=== PATIENT | female | born 2005 | race Two or more races ===

== ENCOUNTER 2025-03-31 20:25 | Outpatient (CLI) | payer OTHER ==
[~2025-03-31] VITALS: Ht 156.2 cm; Wt 85.1 kg
[~2025-03-31 20:25] MED LIST: ASPI81CH33 PO; PRENTAB9 PO; VITA50TA6 PO
[2025-03-31] MEDS: LACTATED RINGER'S 1000 ML IV STA (20:58)
[2025-03-31 21:41] VITALS: BP 106/70
[2025-03-31 22:14] LABS: PLATELET COUNT, AUTOMATED 234 10^3/uL (150-450)
[2025-03-31 22:17] LABS: APPEARANCE, URINE HAZY (CLEAR); BACTERIA, URINE AUTO 1+ (NEGATIVE); BILIRUBIN, URINE AUTO NEGATIVE (NEGATIVE); BLOOD, URINE BLOOD 1+ (NEGATIVE); GLUCOSE, URINE (UA) AUTO NEGATIVE (NEGATIVE); KETONE, URINE AUTO NEGATIVE (NEGATIVE); LEUKOCYTE ESTERASE, URINE AUTO 3+ (NEGATIVE); MUCUS, URINE SMALL (NEGATIVE); NITRITE, URINE AUTO NEGATIVE (NEGATIVE); PROTEIN, URINE AUTO NEGATIVE (NEGATIVE); RBC, URINE AUTO 2 /HPF (0-3); SPECIFIC GRAVITY URINE AUTO 1.009 (1.002-1.035); SQUAMOUS EPITHELIAL CELL UR AU 1 /HPF (0-6); UROBILINOGEN, URINE AUTO 0.2 mg/dL (0.0-2.0); WBC, URINE AUTO 29 /HPF (0-3)
[2025-03-31] MEDS: ACETAMINOPHEN 500 MG TAB PO ONE (22:37)
[2025-03-31 22:51] LABS: ALT/SGPT 17 U/L (7.0-40); AST/SGOT 28 U/L (<34); CALCIUM LEVEL 8.7 MG/DL (8.5-10.1); CARBON DIOXIDE LEVEL 21 MMOL/L (20-31); CHLORIDE LEVEL 102 MMOL/L (98-107); CREATININE FOR GFR 0.43 MG/DL (0.55-1.30); GLOMERULAR FILTRATION RATE > 90.0 (>60); POTASSIUM SERUM 4.3 MMOL/L (3.5-5.1); SODIUM LEVEL 137 MMOL/L (136-145)
[2025-04-01] MEDS: cefTRIAXone SOD 1 GM in DEXTROSE 5% (D5W) ADV/MINI-BAG 50 ML IV SCH (00:09)
[2025-04-01 00:11] VITALS: BP 105/65
[2025-04-01] MEDS: NS (Normal Saline) 0.9% 1,000 ML IV ONE (00:14)
[2025-04-01] MEDS: LR 1,000 ML IV SCH (00:45)
[2025-04-01] MEDS: ACETAMINOPHEN 500 MG TAB PO ONE (05:54)
[2025-04-01] MEDS ORDERED: MACR100C43 PO (06:11)
== END 2025-04-01 06:11 | disposition home or self-care (01) ==
LOC: M LDO 20:25
PROVIDERS: ATTEND Obstetrics & Gynecology
DX: O23.33 Infections of other parts of urinary tract in pregnancy, third trimester (principal); O26.893 Other specified pregnancy related conditions, third trimester; R06.02 Shortness of breath; Z3A.29 29 weeks gestation of pregnancy
CPT/HCPCS: 36415; 59025; 71045; 76705; 80053; 81001; 82150; 83690; 85027; 87040; 87088; 87186; 93005; G0463; J0696

== ENCOUNTER → 2025-05-20 | Outpatient (REF) | payer OTHER ==
[~2025-05-20] MED LIST changes: +MACR100C43 PO
== END ==
LOC: M SFHCWAGY 12:36
PROVIDERS: ATTEND Nurse Practitioner Family
DX: Z34.93 Encounter for supervision of normal pregnancy, unspecified, third trimester (principal); Z3A.36 36 weeks gestation of pregnancy

== ENCOUNTER 2025-06-11 | Outpatient (CLI) | payer OTHER ==
[~2025-06-11] VITALS: Ht 154.9 cm; Wt 92.0 kg
[2025-06-11 00:18] VITALS: BP 107/60
[2025-06-11] MEDS ORDERED: HOME MED LIST COMPLETE! XX SCH (00:25)
[2025-06-11] MEDS ORDERED: ALBU8.5H (00:27)
== END 2025-06-11 02:00 | disposition home or self-care (01) ==
LOC: M LDO
PROVIDERS: ATTEND Advanced Practice Midwife
DX: O26.893 Other specified pregnancy related conditions, third trimester (principal); R06.02 Shortness of breath; Z3A.39 39 weeks gestation of pregnancy
CPT/HCPCS: 59025; G0463

== ENCOUNTER 2025-06-13 07:08 | Inpatient (IN) | payer OTHER ==
[2025-06-13] VITALS (35 sets, daily range): BP systolic 91–210; BP diastolic 52–154
[~2025-06-13] VITALS: Ht 154.9 cm; Wt 92.5 kg
[~2025-06-13 07:08] MED LIST changes: +ALBU8.5H
[2025-06-13] MEDS ORDERED: CARBOPROST TROMETHAMINE 250 MCG/ML AMP IM PRN (09:05)
[2025-06-13] MEDS ORDERED: LIDOCAINE 1% MDV 20 ML VIAL INFIL PRN (09:05)
[2025-06-13] MEDS ORDERED: OXYTOCIN DRIP 30 UNITS in IV 1 EA IV PRN (09:05)
[2025-06-13] MEDS ORDERED: METHYLERGONOVINE MALEATE 0.2 MG/ML 1 ML VIAL IM PRN (09:05)
[2025-06-13] MEDS ORDERED: OXYTOCIN INJ 10UNITS/ML 1ML VIAL IM PRN (09:05)
[2025-06-13 10:12] LABS: PLATELET COUNT, AUTOMATED 223 10^3/uL (150-450)
[2025-06-13 11:05] LABS: HIV 1&2 SCREEN NEGATIVE (NEGATIVE)
[2025-06-13 11:13] LABS: HEPATITIS C VIRUS ABY INDEX < 0.02 INDEX (<0.8)
[2025-06-13] MEDS: LR 1,000 ML IV SCH (18:32)
[2025-06-13] MEDS: OXYTOCIN DRIP 30 UNITS in IV 1 EA IV SCH (18:32)
[2025-06-13] MEDS: LACTATED RINGER'S 1000 ML IV STA (19:52)
[2025-06-13] MEDS ORDERED: EPIDURAL/PCA KEYS XX PRN (20:25)
[2025-06-13] MEDS ORDERED: NALOXONE INJ 0.4 MG/1 ML VIAL IV PRN (20:25)
[2025-06-13] MEDS ORDERED: LR 500 ML IV PRN (20:25)
[2025-06-13] MEDS: FENTANYL/ROPIVACAINE/NACL BAG 100 ML EPIDURAL SCH (20:53)
[2025-06-14] VITALS (21 sets, daily range): BP systolic 96–160; BP diastolic 50–131; O2SAT 97–99
[2025-06-14] MEDS ORDERED: ACETAMINOPHEN 500 MG TAB As Ordered ONE (02:57)
[2025-06-14] MEDS: ACETAMINOPHEN 500 MG TAB PO ONE (02:59)
[2025-06-14] MEDS: AMPICILLIN SOD/SULBACTAM SOD 3 GM in DEXTROSE 5% (D5W) MINI-BAG PLU 100 ML IV ONE (03:02)
[2025-06-14 03:49] LABS: CORD GAS ABE V -8.4; CORD GAS HCO3 V 16.2 MMOL/L; CORD GAS O2 SAT V 78.3 %; CORD GAS PCO2 V 31.5 mmHg; CORD GAS PH V 7.328 UNITS; CORD GAS PO2 V 35.4 mmHg; CORD GAS SBC V 17.4 MMOL/L; CORD GAS TCO2 V 17.1 MMOL/L
[2025-06-14 03:52] LABS: CORD GAS ABE A -11.5; CORD GAS HCO3 A 18.3 MMOL/L; CORD GAS O2 SAT A 30.6 %; CORD GAS PCO2 A 57.7 mmHg; CORD GAS PH A 7.12 UNITS; CORD GAS PO2 A 18.0 mmHg; CORD GAS SBC A 14.3 MMOL/L; CORD GAS TCO2 A 20.1 MMOL/L
[2025-06-14] MEDS: TRANEXAMIC ACID INJection 1,000 MG in NS 100 ML IV PRN (04:04)
[2025-06-14] MEDS: ONDANSETRON 4MG 2ML VIAL IV PRN (04:17)
[2025-06-14] MEDS: diphenhydrAMINE 50 MG/ML VIAL IV PRN (05:27)
[2025-06-14] MEDS ORDERED: DIBUCAINE 1% OINTMENT 30 GM TOP PRN (08:05)
[2025-06-14] MEDS ORDERED: METHYLERGONOVINE MALEATE 0.2 MG TAB PO PRN (08:05)
[2025-06-14] MEDS ORDERED: RHOGAM 300MCG (1500IU) INJ IM SCH (08:05)
[2025-06-14] MEDS ORDERED: ACETAMINOPHEN 325 MG TAB PO PRN (08:05)
[2025-06-14] MEDS: PRENATAL VITAMINS CHEWABLE TABLET PO SCH (10:05)
[2025-06-14] MEDS: IBUPROFEN 800 MG TAB PO PRN (10:06)
[2025-06-14] MEDS: ACETAMINOPHEN 500 MG TAB PO PRN (13:00)
[2025-06-14] MEDS: DOCUSATE SODIUM 100 MG CAPSULE PO PRN (13:00)
[2025-06-14] MEDS: IBUPROFEN 600 MG TAB PO PRN (17:21)
[2025-06-15 02:00] VITALS: BP 98/55; O2SAT 98
[2025-06-15 06:00] VITALS: BP 102/56; O2SAT 97
[2025-06-15 18:00] VITALS: BP 117/55; O2SAT 97
[2025-06-16 05:47] VITALS: BP 105/64; O2SAT 98
[2025-06-16] MEDS ORDERED: FLUZONE VACCINE TRI PF(25-26) 0.5ML SYRINGE IM.IMMUN ONE (09:00)
[2025-06-16] MEDS ORDERED: MEASLES,MUMPS,RUBELLA VACCINE INJ (MMR-II) SC.IMMUN ONE (09:00)
[2025-06-16 09:31] VITALS: O2SAT 98
[2025-06-16 10:00] VITALS: BP 141/81; O2SAT 98
[2025-06-16] MEDS ORDERED: IBUP80TA PO (10:02)
[2025-06-16] MEDS ORDERED: ACET-683 PO (10:02)
== END 2025-06-16 13:15 | disposition home or self-care (01) | DRG 805 ==
LOC: M LDO 07:08 → M LDI 09:07 → M OBS 06-14 07:06
PROVIDERS: ADMIT Advanced Practice Midwife; ATTEND Advanced Practice Midwife
PROC: 10E0XZZ Delivery of Products of Conception, External Approach (ICD-10-PCS; principal; 2025-06-14)
DX: O69.81X0 Labor and delivery complicated by cord around neck, without compression, not applicable or unspecified (principal); Z37.0 Single live birth; O41.1230 Chorioamnionitis, third trimester, not applicable or unspecified; Z3A.39 39 weeks gestation of pregnancy; O76 Abnormality in fetal heart rate and rhythm complicating labor and delivery